=== PATIENT | female | born 1955 | race Caucasian/White ===

== ENCOUNTER → 2017-05-25 | Outpatient (CLI) | payer OTHER ==
[~2017-05-25] MED LIST: LISI-729 PO; MELO15TA4 PO; PANT40TA PO; XLTOPS OPR
[2017-05-25 12:24] LABS: BASO % 0.4 %; BASO ABS # 0.03 K/uL (0-0.2); COMPLETE YES; EOS % 2.3 %; HEMATOCRIT 40.6 % (37-47); IG% 0.3 %; LYMPH % 31.7 %; LYMPH ABS # 2.43 K/uL (1.2-3.4); MEAN CELL VOLUME 89.6 fL (80-100); MEAN CORPUSCULAR HEMOGLOBIN 29.6 pg (25-34); MEAN PLATELET VOLUME 11.9 fL (7.4-10.4); MONO % 9.3 %; PLATELET COUNT 176 K/uL (130-400); RED BLOOD COUNT 4.53 M/uL (4.2-5.4); WHITE BLOOD COUNT 7.67 K/uL (4.8-10.8)
[2017-05-25 12:40] LABS: BLOOD UREA NITROGEN 19 mg/dl (7-18); BUN/CREATININE RATIO 22.8 (10-20); CALCIUM 9.1 mg/dl (8.5-10.1); CARBON DIOXIDE 27 mmol/L (21-32); CHLORIDE 105 mmol/L (98-107); CREATININE 0.81 mg/dl (0.60-1.20); GLUCOSE 117 mg/dl (70-99); POTASSIUM 3.9 mmol/L (3.5-5.1); SODIUM 139 mmol/L (136-145)
== END | disposition home or self-care (01) ==
LOC: C.CPL 10:39
PROVIDERS: ATTEND Orthopaedic Surgery
DX: G56.01 Carpal tunnel syndrome, right upper limb (principal)

== ENCOUNTER → 2017-06-03 | Day surgery (SDC) | payer OTHER ==
[2017-05-27 14:47] VITALS: Ht 162.6 cm; Wt 93.6 kg
[~2017-06-03] VITALS: Ht 162.6 cm; Wt 93.6 kg
[~2017-06-03] MED LIST changes: +ATROPINE SULFATE 0.1 MG/ML 5ML SYR IV PRN; +CEFAZOLIN 2000MG IV PUSH 10 ML IV SCH; +EpHEDrine SULFATE INJ 50 MG/ML AMP IV PRN; +FENTANYL CITRATE INJ 50 MCG/1 ML 2 ML VIAL IV PRN; +HYDR-5688 PO; +HYDROCODONE/ACETAMOPHEN 5/325MG TAB PO PRN; +LACTATED RINGER'S 1000ML 1,000 ML IV SCH; +LACTATED RINGER'S 1000ML 500 ML IV SCH; +LIDOCAINE HCL 2% LOCAL 20 ML VIAL ONE; -MELO15TA4 PO; +ONDANSETRON INJ 2 MG/ML 2 ML VIAL IV PRN; +PROPOFOL IV EMULSION 10 MG/ML 20 ML VIAL IV ONE; +SODIUM CHLORIDE 0.9% 1000ML 1,000 ML IV SCH
--- NOTE | 2017-06-03 10:20 | History & Physical Bridge Note ---
H&P Re-Evaluation Bridge Note: I have examined the patient, reviewed the History & Physical and in the interval since the performance of the History & Physical I have noted the following changes of clinical significance: No changes noted
--- NOTE | 2017-06-03 15:09 | Discharge Instructions-SurgCtr ---
Discharge Instructions Date of Service Jun 03, 2017. Visit Reason for Visit: Left Carpal Tunnel Syndrome Discharge Discharge Diagnosis / Problem: SAME ABOVE Discharge Goals Goal(s): Decrease discomfort, Improve function Activity Recommendations Activity Limitations: as noted below Lifting Limitations: until after follow-up appointment Exercise/Sports Limitations: until after follow-up appointment Anesthesia . Post Anesthesia Instructions: If you have had General Anesthesia or IV Sedation: * Do not drive today. * Resume driving when surgeon permits. * Do not make important decisions or sign legal documents today. * Call surgeon for: 1. Temperature elevations greater than 101 degrees F. 2. Uncontrollable pain. 3. Excessive bleeding. 4. Persistent nausea and vomiting. 5. Medication intolerance (nausea, vomiting or rash). * For nausea and vomiting use only clear liquids such as: tea, soda, bouillon until nausea subsides, then gradually increase diet as tolerated. * If you have any concerns or questions, call your surgeon's office. If physician is unavailable and it is an emergency, call 911 or go to the nearest emergency room. . Instructions / Follow-Up Instructions / Follow-Up MEDICATIONS: * Resume previous medications unless instructed otherwise by your surgeon. * Always take pain medication on a full stomach or with food to avoid upset stomach. * Do not drink alcohol or drive while taking narcotics. * Ibuprofen or Tylenol may be taken if narcotic not needed. SPECIAL CARE INSTRUCTIONS: __ None _X_ Keep extremity elevated and iced x 48 hours; apply ice 20-30 minutes 8-10 times/day. May remove at night. __ Sling __24 hrs/day __ Remove at night __ Shoulder Immobilizer __ 24 hrs/day __ Remove at night _X_ Dressing __ Maintain until seen in office, may shower with plastic over site _X_ Remove dressings in 5 DAYS. MAY SHOWER SOONER IF COVERED WITH PLASTIC BAG _X_ Cover incisions with band-aids after showering __ Do not remove steri-strips Call physician if chills or temperature rises above 102 degrees or pain unrelieved by prescribed pain medications at . . Diet Recommendations Home Diet: no limitations Fluid Restriction: None Pending Studies Studies pending at discharge: no Work Instructions Return To Work: after follow-up Lifting Limitations: no more than 10 pounds Medical Emergencies . Who to Call and When: Medical Emergencies: If at any time you feel your situation is an emergency, please call 911 immediately. . Non-Emergent Contact Non-Emergency issues call your: Primary Care Provider Call Non-Emergent contact if: you have a fever, temperature is above 101.5 . . "Provider Documentation" section prepared by Vinay Deras. .
[2017-06-03 15:16] VITALS: TEMP 36.8
--- NOTE | 2017-06-03 15:16 | [facility] Post Operative Brief Note ---
Immediate Operative Summary Operative Date Jun 03, 2017. Pre-Operative Diagnosis Left Carpal Tunnel Syndrome Post-Operative Diagnosis Same Procedure(s) Performed Left Carpal Tunnel Release Surgeon Dr. Alonso Environmental Studies Department Chair Surgeon(s) None Estimated Blood Loss 5ml Findings as above Specimens None Complication(s) None Disposition Recovery Room / PACU
--- NOTE | 2017-06-03 15:26 | Anesthesia Progress Nt - [facility] ---
Anesthesia Post Op Note Date & Time Jun 03, 2017 at 15:26 Vital Signs Pain Intensity: 0 Vital Signs Past 12 Hours Date Time Temp Pulse Resp B/P (MAP) Pulse Ox O2 Delivery O2 Flow Rate FiO2 06/03/17 12:24 36.9 88 16 130/92 (105) 95 Room Air Notes Mental Status: alert / awake / arousable, participated in evaluation Pt Amnestic to Procedure: Yes Nausea / Vomiting: adequately controlled Pain: adequately controlled Airway Patency, RR, SpO2: stable & adequate BP & HR: stable & adequate Hydration State: stable & adequate Anesthetic Complications: no major complications apparent
[2017-06-03 15:45] VITALS: BP 139/85; PULSE 71; O2SAT 95
--- NOTE | 2017-06-03 17:54 | OPERATIVE REPORT ---
DATE OF OPERATION: 06/03/2017 PREOPERATIVE DIAGNOSIS: Carpal tunnel syndrome of the left wrist. POSTOPERATIVE DIAGNOSIS: Same. PROCEDURE: Open left carpal tunnel release. SURGEON: Dr. Iban Alonso. INTERACTIVE MARKETING STRATEGIST: None. ANESTHESIA: Local with sedation. COMPLICATION: None. CONDITION: Stable to PACU. INDICATIONS: Meredith is a pleasant 62-year-old female who presented to my office with complaints of numbness in her left hand. EMG and clinical examination were diagnostic for carpal tunnel syndrome of the left wrist. After failing conservative treatment, she elected to undergo an open left carpal tunnel release. On 06/03/2017, she arrived at [facility] for the above procedure. She was seen in the preoperative holding area and the operative extremity was identified and signed. She was given a preoperative antibiotic and taken back to the operating room, laid on table in supine position and put under basic sedation. The left wrist was then prepped and draped in sterile fashion, timeout was done, and the patient and operative extremity was properly identified. The surgical site was anesthetized with 10 mL of lidocaine. A longitudinal incision was made directly over the transverse carpal ligament. Dissection was taken down through the fascia. The transverse carpal ligament was then released with a knife and tenotomy scissors. Care was taken to ensure complete proximal and distal release. Care was also taken not to disrupt the motor branch or the palmar cutaneous branch. The wound was then irrigated and closed with 4-0 nylon suture. She was placed in a soft dressing and taken to the postanesthesia care unit in stable condition. She tolerated the procedure well. I attest to the content of the Intraoperative Record and any orders documented therein. Any exception s are noted below.
== END | disposition home or self-care (01) ==
LOC: X.SURG 12:10
PROVIDERS: ATTEND Orthopaedic Surgery
DX: G56.02 Carpal tunnel syndrome, left upper limb (principal); I10 Essential (primary) hypertension; K21.9 Gastro-esophageal reflux disease without esophagitis; E66.9 Obesity, unspecified; Z79.899 Other long term (current) drug therapy

== ENCOUNTER → 2017-06-21 | Outpatient (CLI) | payer OTHER ==
[~2017-06-21] MED LIST changes: -ATROPINE SULFATE 0.1 MG/ML 5ML SYR IV PRN; -CEFAZOLIN 2000MG IV PUSH 10 ML IV SCH; -EpHEDrine SULFATE INJ 50 MG/ML AMP IV PRN; -FENTANYL CITRATE INJ 50 MCG/1 ML 2 ML VIAL IV PRN; -HYDROCODONE/ACETAMOPHEN 5/325MG TAB PO PRN; -LACTATED RINGER'S 1000ML 1,000 ML IV SCH; -LACTATED RINGER'S 1000ML 500 ML IV SCH; -LIDOCAINE HCL 2% LOCAL 20 ML VIAL ONE; -ONDANSETRON INJ 2 MG/ML 2 ML VIAL IV PRN; -PROPOFOL IV EMULSION 10 MG/ML 20 ML VIAL IV ONE; -SODIUM CHLORIDE 0.9% 1000ML 1,000 ML IV SCH
[2017-06-21 18:06] LABS: BASO % 0.6 %; BASO ABS # 0.04 K/uL (0-0.2); EOS % 2.5 %; EOS ABS # 0.17 K/uL (0-0.5); HEMATOCRIT 42.4 % (37-47); HEMOGLOBIN 14.3 g/dL (12.0-16.0); IG# 0.01 K/uL (0.00-0.02); LYMPH % 31.8 %; LYMPH ABS # 2.17 K/uL (1.2-3.4); MEAN CELL VOLUME 89.1 fL (80-100); MEAN CORPUSCULAR HGB CONC 33.7 g/dl (32-36); MEAN PLATELET VOLUME 11.2 fL (7.4-10.4); MONO % 8.6 %; MONO ABS # 0.59 K/uL (0.11-0.59); NEUT % 56.4 %; NEUT ABS # 3.85 K/uL (1.4-6.5); PLATELET COUNT 177 K/uL (130-400); RED CELL DISTRIBUTION WIDTH CV 12.8 % (11.5-14.5); RED CELL DISTRIBUTION WIDTH SD 41.3 fL (36.4-46.3); WHITE BLOOD COUNT 6.83 K/uL (4.8-10.8)
[2017-06-21 18:27] LABS: BLOOD UREA NITROGEN 18 mg/dl (7-18); CALCIUM 8.9 mg/dl (8.5-10.1); CARBON DIOXIDE 27 mmol/L (21-32); CREATININE 0.88 mg/dl (0.60-1.20); GLUCOSE 108 mg/dl (70-99); POTASSIUM 4.3 mmol/L (3.5-5.1); SODIUM 139 mmol/L (136-145)
== END | disposition home or self-care (01) ==
LOC: C.LAB 17:05
PROVIDERS: ATTEND Orthopaedic Surgery
DX: G56.01 Carpal tunnel syndrome, right upper limb (principal)

== ENCOUNTER → 2017-07-08 | Day surgery (SDC) | payer OTHER ==
[2017-07-06 14:31] VITALS: Ht 162.6 cm; Wt 93.6 kg
[~2017-07-08] VITALS: Ht 162.6 cm; Wt 93.6 kg
[~2017-07-08] MED LIST changes: +ATROPINE SULFATE 0.1 MG/ML 5ML SYR IV PRN; +CEFAZOLIN 2000MG IV PUSH 10 ML IV SCH; +EpHEDrine SULFATE INJ 50 MG/ML AMP IV PRN; +FENTANYL CITRATE INJ 50 MCG/1 ML 2 ML VIAL ONE; +HYDROCODONE/ACETAMOPHEN 5/325MG TAB PO PRN; +LACTATED RINGER'S 1000ML 1,000 ML IV SCH; +LIDOCAINE HCL 1% 20 ML VIAL ONE; +LIDOCAINE HCL 2% 2 ML VIAL (20MG/ML) ONE; +LIDOCAINE HCL 2% LOCAL 20 ML VIAL ONE; +MIDAZOLAM HCL 1 MG/ML 2ML VIAL ONE; +ONDANSETRON INJ 2 MG/ML 2 ML VIAL IV PRN; -PANT40TA PO; +PROPOFOL IV EMULSION 10 MG/ML 20 ML VIAL IV ONE; +SODIUM CHLORIDE 0.9% 1000ML 1,000 ML IV SCH
--- NOTE | 2017-07-08 07:23 | [facility] Post Operative Brief Note ---
Immediate Operative Summary Operative Date Jul 08, 2017. Pre-Operative Diagnosis Right Carpal Tunnel Syndrome Post-Operative Diagnosis Same Procedure(s) Performed Right Carpal Tunnel Release Surgeon Dr. Alonso Scheduling Agent Surgeon(s) Emeli Deras PA-C Estimated Blood Loss None Findings as above Specimens None Complication(s) None Disposition Recovery Room / PACU
[2017-07-08 07:29] VITALS: TEMP 36.5
--- NOTE | 2017-07-08 07:31 | Discharge Instructions-SurgCtr ---
Discharge Instructions Date of Service Jul 08, 2017. Visit Reason for Visit: Right Carpal Tunnel Syndrome Discharge Discharge Diagnosis / Problem: SAME ABOVE Discharge Goals Goal(s): Decrease discomfort, Improve function Medications Stopped Medications Name(s): no blood thinners Restart Stopped Medication(s): MAY RESTART 07/08/2017 Activity Recommendations Activity Limitations: as noted below Lifting Limitations: until after follow-up appointment Exercise/Sports Limitations: until after follow-up appointment Driving or Machine Use: resume 1 day after discharge Anesthesia . Post Anesthesia Instructions: If you have had General Anesthesia or IV Sedation: * Do not drive today. * Resume driving when surgeon permits. * Do not make important decisions or sign legal documents today. * Call surgeon for: 1. Temperature elevations greater than 101 degrees F. 2. Uncontrollable pain. 3. Excessive bleeding. 4. Persistent nausea and vomiting. 5. Medication intolerance (nausea, vomiting or rash). * For nausea and vomiting use only clear liquids such as: tea, soda, bouillon until nausea subsides, then gradually increase diet as tolerated. * If you have any concerns or questions, call your surgeon's office. If physician is unavailable and it is an emergency, call 911 or go to the nearest emergency room. . Instructions / Follow-Up Instructions / Follow-Up MEDICATIONS: * Resume previous medications unless instructed otherwise by your surgeon. * Always take pain medication on a full stomach or with food to avoid upset stomach. * Do not drink alcohol or drive while taking narcotics. * Ibuprofen or Tylenol may be taken if narcotic not needed. SPECIAL CARE INSTRUCTIONS: __ None _X_ Keep extremity elevated and iced x 48 hours; apply ice 20-30 minutes 8-10 times/day. May remove at night. __ Sling __24 hrs/day __ Remove at night __ Shoulder Immobilizer __ 24 hrs/day __ Remove at night _X_ Dressing __ Maintain until seen in office, may shower with plastic over site _X_ Remove dressings in 5 DAYS. MAY SHOWER SOONER IF COVERED WITH PLASTIC BAG _X_ Cover incisions with band-aids after showering __ Do not remove steri-strips Call physician if chills or temperature rises above 102 degrees or pain unrelieved by prescribed pain medications at . . Diet Recommendations Home Diet: no limitations Fluid Restriction: None Procedures Procedures Performed: Right Carpal Tunnel Release Pending Studies Studies pending at discharge: no Work Instructions Return To Work: after follow-up Lifting Limitations: no more than 10 pounds Medical Emergencies . Who to Call and When: Medical Emergencies: If at any time you feel your situation is an emergency, please call 911 immediately. . Non-Emergent Contact Non-Emergency issues call your: Primary Care Provider Call Non-Emergent contact if: you have a fever, temperature is above 101.5 . . "Provider Documentation" section prepared by Vinay Deras. .
--- NOTE | 2017-07-08 07:34 | OPERATIVE REPORT ---
DATE OF OPERATION: 07/08/2017 PREOPERATIVE DIAGNOSIS: Carpal tunnel syndrome of the right wrist. POSTOPERATIVE DIAGNOSIS: Same. PROCEDURE: Open right carpal tunnel release. SURGEON: Iban Alonso DO. DISPATCH CLERK: Milton Deras PA-C, whose assistance was necessary for positioning of the hand helping with retraction and closure. ANESTHESIA: Local with sedation. COMPLICATIONS: None. CONDITION: Stable to PACU. INDICATIONS: Meredith is a pleasant 62-year-old female who presented to my office with complaints of numbness in her right hand. EMG and clinical examination were diagnostic for carpal tunnel syndrome of the right wrist. After failing conservative treatment, she elected to undergo an open carpal tunnel release. DESCRIPTION OF THE PROCEDURE: On 07/08/2017, she arrived at [facility] for the above procedure. She was seen in the preoperative holding area and the operative extremity was identified and signed. She was given preoperative antibiotic and taken back to the operating room, laid on the table in supine position and given basic sedation. The right hand was then prepped and draped in sterile fashion. Time-out was done and the patient and operative extremity was properly identified. The surgical site was anesthetized with 8 mL of 1% lidocaine. A longitudinal incision was made directly over the transverse carpal ligament. Dissection was taken down through the palmar fascia. The transverse carpal ligament was then released with a sharp knife and tenotomy scissors. Care was taken not to disrupt the palmar cutaneous branch or the motor branch of the median nerve. The wound was then irrigated and closed with 4-0 nylon suture. She was placed in a soft dressing and taken to the postanesthesia care unit in stable condition. She tolerated the procedure well. I attest to the content of the Intraoperative Record and any orders documented therein. Any exception s are noted below.
[2017-07-08 07:51] VITALS: BP 138/85; PULSE 75; O2SAT 97
--- NOTE | 2017-07-08 07:56 | Anesthesia Progress Nt - [facility] ---
Anesthesia Post Op Note Date & Time Jul 08, 2017 at 07:56 Vital Signs Pain Intensity: 0 Vital Signs Past 12 Hours Date Time Temp Pulse Resp B/P (MAP) Pulse Ox O2 Delivery O2 Flow Rate FiO2 07/08/17 07:51 75 16 138/85 (102) 97 Room Air 07/08/17 07:29 36.5 77 16 111/74 (86) 93 Room Air 07/08/17 06:24 36.9 84 16 144/93 (110) 95 Room Air Notes Mental Status: alert / awake / arousable, participated in evaluation Pt Amnestic to Procedure: Yes Nausea / Vomiting: adequately controlled Pain: adequately controlled Airway Patency, RR, SpO2: stable & adequate BP & HR: stable & adequate Hydration State: stable & adequate Anesthetic Complications: no major complications apparent
== END | disposition home or self-care (01) ==
LOC: X.SURG 06:04
PROVIDERS: ATTEND Orthopaedic Surgery
DX: G56.01 Carpal tunnel syndrome, right upper limb (principal); I10 Essential (primary) hypertension; K21.9 Gastro-esophageal reflux disease without esophagitis; E66.9 Obesity, unspecified; Z79.899 Other long term (current) drug therapy

== ENCOUNTER 2022-10-28 05:58 | Observation (INO) ==
--- NOTE | 2022-09-15 09:39 | PAT Medication Instructions ---
Medication Instructions Date of Service September 15, 2022 Home Medications Medication Instructions Recorded Auto Titrating CPAP #1 ea 02/05/22 pantoprazole 40 mg tablet,delayed 40 mg PO BID #60 tabs 07/29/22 release atorvastatin 20 mg tablet 20 mg PO 1400 #90 tabs 08/17/22 oxybutynin chloride 15 mg 15 mg PO 1400 #90 tabs 08/17/22 tablet,extended release 24 hr diazepam 5 mg tablet 5 mg PO ONCE PRN anxiety #2 tabs 08/24/22 gabapentin 300 mg capsule 300 mg PO TID #90 caps 09/01/22 diclofenac sodium 75 mg 75 mg PO BID PRN pain #30 tabs 09/11/22 tablet,delayed release tizanidine 4 mg tablet 4 mg PO BID PRN muscle spasticity 09/11/22 #30 tabs B-complex with vitamin C 1 tab PO 1400 calcium carbonate 300 mg (750 mg) chewable tablet (Tums) 300 mg PO BID cholecalciferol (vitamin D3) 125 mcg (5,000 unit) capsule 125 mcg PO 1400 magnesium 250 mg tablet 250 mg PO 1400 docusate sodium 250 mg capsule (Stool Softener) 250 mg PO BID fluticasone propionate 50 mcg/actuation nasal spray,suspension (Flonase Allergy Relief) 1 spray intranasal HS latanoprost (PF) 0.005 % eye drops 1 drp ophthalmic (eye) DAILY lisinopril 20 mg tablet 20 mg PO 1400 metformin 500 mg tablet,extended release 24 hr 1,000 mg PO 1400 pantoprazole 40 mg tablet,delayed release 40 mg PO BID atorvastatin 20 mg tablet 20 mg PO 1400 oxybutynin chloride 15 mg tablet,extended release 24 hr 15 mg PO 1400 diazepam 5 mg tablet 5 mg PO ONCE PRN anxiety gabapentin 300 mg capsule 300 mg PO TID diclofenac sodium 75 mg tablet,delayed release 75 mg PO BID PRN pain tizanidine 4 mg tablet 4 mg PO BID PRN muscle spasticity Continue as directed B-complex with vitamin C 1 tab PO 1400 (just do not take day of surgery) cholecalciferol (vitamin D3) 125 mcg (5,000 unit) capsule 125 mcg PO 1400 (just do not take day of surgery) latanoprost (PF) 0.005 % eye drops 1 drp ophthalmic (eye) DAILY lisinopril 20 mg tablet 20 mg PO 1400 (just do not take day of surgery) metformin 500 mg tablet,extended release 24 hr 1,000 mg PO 1400 (just do not take day of surgery) atorvastatin 20 mg tablet 20 mg PO 1400 oxybutynin chloride 15 mg tablet,extended release 24 hr 15 mg PO 1400 (just do not take day of surgery) diazepam 5 mg tablet 5 mg PO ONCE PRN anxiety (if needed) ASK your surgeon for instructions diclofenac sodium 75 mg tablet,delayed release 75 mg PO BID PRN pain DO NOT take the morning of surgery calcium carbonate 300 mg (750 mg) chewable tablet (Tums) 300 mg PO BID magnesium 250 mg tablet 250 mg PO 1400 calcium carbonate 300 mg (750 mg) chewable tablet (Tums) 300 mg PO BID docusate sodium 250 mg capsule (Stool Softener) 250 mg PO BID tizanidine 4 mg tablet 4 mg PO BID PRN muscle spasticity Take morning of surgery With a small sip of water, OTHERWISE NOTHING TO EAT OR DRINK AFTER MIDNIGHT: pantoprazole 40 mg tablet,delayed release 40 mg PO BID gabapentin 300 mg capsule 300 mg PO TID Take evening before surgery calcium carbonate 300 mg (750 mg) chewable tablet (Tums) 300 mg PO BID magnesium 250 mg tablet 250 mg PO 1400 calcium carbonate 300 mg (750 mg) chewable tablet (Tums) 300 mg PO BID docusate sodium 250 mg capsule (Stool Softener) 250 mg PO BID fluticasone propionate 50 mcg/actuation nasal spray,suspension (Flonase Allergy Relief) 1 spray intranasal HS pantoprazole 40 mg tablet,delayed release 40 mg PO BID gabapentin 300 mg capsule 300 mg PO TID tizanidine 4 mg tablet 4 mg PO BID PRN muscle spasticity (if needed) Other Notes If you have any questions please call us at [phone] or [phone] or [phone] or [phone]
--- NOTE | 2022-10-26 15:37 | Anesthesiology Consultation ---
Date of Service October 26, 2022 Assessment & Plan (1) Encounter for pre-operative examination: - Check BSG AM DOS - COVID screening: Per assessment on 10/26: No known COVID-19 positive contacts or current COVID-19 related symptoms. Travel screen negative. Patient vaccinated. At surgeon discretion if preop Covid testing being done. Chart Review Chart Review: Acceptable Risk for Surgery History Surgery Operation Date: 09/30/22 07:30 Proposed Procedures p L2-L3 Laminectomy, L4-L5 Laminectomy - Romaine Herbert MD Operation Date: 10/28/22 07:30 Proposed Procedures p L2-L3 Laminectomy, L4-L5 Laminectomy - Romaine Herbert MD Height/Weight Height: 5 ft 4 in Weight: 104.8 kg Allergies Allergy/AdvReac Type Severity Reaction Status Date / Time codeine Allergy Mild HIVES Verified 09/14/22 13:45 Medications Home Medications Medication Instructions Recorded Confirmed Last Taken B-complex with vitamin C 1 tab PO 1400 04/07/21 09/14/22 07/05/22 calcium carbonate 300 mg (750 mg) 300 mg PO BID 04/07/21 09/14/22 07/05/22 chewable tablet (Tums) cholecalciferol (vitamin D3) 125 125 mcg PO 1400 04/07/21 09/14/22 07/05/22 mcg (5,000 unit) capsule magnesium 250 mg tablet 250 mg PO 1400 04/07/21 09/14/22 07/05/22 docusate sodium 250 mg capsule 250 mg PO BID 06/30/22 09/14/22 07/05/22 (Stool Softener) fluticasone propionate 50 1 spray intranasal HS 06/30/22 09/14/22 07/05/22 mcg/actuation nasal spray,suspension (Flonase Allergy Relief) latanoprost (PF) 0.005 % eye drops 1 drp ophthalmic (eye) DAILY 06/30/22 09/14/22 07/05/22 pantoprazole 40 mg tablet,delayed 40 mg PO BID #60 tabs 07/29/22 09/14/22 Unknown release atorvastatin 20 mg tablet 20 mg PO 1400 #90 tabs 08/17/22 09/14/22 Unknown oxybutynin chloride 15 mg 15 mg PO 1400 #90 tabs 08/17/22 09/14/22 Unknown tablet,extended release 24 hr diazepam 5 mg tablet 5 mg PO ONCE PRN anxiety #2 tabs 08/24/22 09/14/22 Unknown gabapentin 300 mg capsule 300 mg PO TID #90 caps 09/01/22 09/14/22 Unknown diclofenac sodium 75 mg 75 mg PO BID PRN pain #30 tabs 09/11/22 09/14/22 Unknown tablet,delayed release metformin 500 mg tablet,extended 1,000 mg PO 1400 #180 tabs 09/17/22 Unknown release 24 hr lisinopril 20 mg tablet 20 mg PO 1400 #90 tabs 10/02/22 Unknown Auto Titrating CPAP #1 ea 10/09/22 Unknown tizanidine 4 mg capsule 4 mg PO BID PRN muscle spasticity 10/20/22 Unknown #30 caps tramadol 50 mg tablet 50 mg PO BID PRN severe pain 10/20/22 Unknown (scale score 7-10) #30 tabs Past Medical History Medical History Arthritis Chronic back pain Chronic neck pain Diabetes type 2, controlled NIDDM GERD (gastroesophageal reflux disease) History of COVID-19 06/2022 (home test)- weakness, fatigue, given Paxlovid Hx of endometriosis Hyperlipidemia Hypertension Lumbar radiculopathy, right Lumbar spinal stenosis Macular degeneration Mixed stress and urge urinary incontinence Peripheral neuropathy Sacroiliitis Severe obstructive sleep apnea CPAP (device taken back, needs to be retested) Exercise / Class Metabolic Activity III < 4 Walking/Shop/Light housework Past Family History Family History Father Prostate cancer Myocardial infarction Lung cancer Mother Congestive heart failure Hypertension Other No family history of adverse response to anesthesia Denies family history of Ovarian cancer Breast cancer Colorectal cancer Past Surgical History Surgical History H/O knee surgery partial Right knee replacement H/O neck surgery C4-[address] Aguilar - Full ROM per patient History of bilateral tubal ligation History of carpal tunnel release bilateral History of section x2 History of colonoscopy History of detached retina repair right History of esophagogastroduodenoscopy (EGD) Colonoscopy/EGD (07/07/22): MAC at [facility] History of tonsillectomy S/P debridement () stomach area S/P epidural steroid injection cervical S/P gastroplasty Vertical Banded Gastroplasty S/P laparotomy () multiple for endometriosis + mesh placement + surgical site infection s/p mesh placement Past Anesthesia History No Hx of Anesthesia Complications and No Family Hx of Anesthesia Complications History of PONV No Hx of PONV and No Hx of Motion Sickness Social History Smoking Status: Former smoker Do You Dip or Chew Tobacco: No Smoking End Date: Quit age 30s Hx Alcohol Use: No Hx Substance Use: No substance use type: does not use Review of Systems Patient denies chest pain, shortness of breath, fever, chills, cough, wheezing, palpitations. Physical Exam Vital Signs VITALS BP 116/71 P 93 TEMP 98.4 SP02 96%RA RESP 18 PHYSICAL Mildly decreased cervical extension range of motion. Full TMJ range of motion. TMD 3.5 finger breaths Mallampati Score 3 Dentition: upper full denture, edentulous Lungs: clear throughout to auscultation Cardiac: regular rate and rhythm, no murmurs noted Spine: normal Carotid arteries: negative bruit Extremities: no LE edema Lab Results Anesthesia Preop Results Results Anesthesia Widget: WBC 9.63 K/ul (4.8-10.8) 10/26/22 Hgb 13.6 g/dl (12.0-16.0) 10/26/22 Hct 41.9 % (37.0-47.0) 10/26/22 Plt 191 K/uL (130-400) 10/26/22 Na 141 mmol/L (136-145) 10/26/22 K 4.5 mmol/L (3.5-5.1) 10/26/22 Cl 107 mmol/L (98-107) 10/26/22 CO2 29 mmol/L (21-32) 10/26/22 BUN 29 mg/dl (6-23) H 10/26/22 Creat 0.95 mg/dl (0.6-1.2) 10/26/22 Glucose Level 114 mg/dl (70-99(Fasting)) H 10/26/22 PT 9.8 Seconds (9.0-12.0) 10/26/22 PTT 24.3 Seconds (21.0-31.0) 10/26/22 INR 0.9 (0.9-1.1) 10/26/22 HA1c 6.3 % (4.5-5.6) H 10/26/22 Blood Type A Positive 10/26/22 Antibody Screen NEGATIVE 10/26/22 Testing Electrocardiogram Date: 10/26/22 NSR at 94bpm. unconfirmed report. Chest X-Ray Date: 10/26/22 FINDINGS: Cardiomediastinal and hilar silhouettes are within normal limits. No pneumothorax, pleural effusion, airspace consolidation or pulmonary edema. Degenerative changes of the shoulders and spine. Cervical spinal fusion hardware. Surgical clips project over the upper abdomen. IMPRESSION: No acute process. COVID-19 Risk Screen Screening Information COVID-19 Screen Date: 10/26/22 Exposure 21 Days Family/Household +COVID Last 21 Days: No Exposure 10 Days Any COVID Exposure Last 10 Days: No Symptoms Last 10 Days Experienced COVID Sx Last 10 Days: No + COVID 0-90 Days COVID + in Last 0-90 Days: No
[2022-10-28] MEDS ORDERED: LR 60ML/HR IV SCH (06:00)
[2022-10-28] MEDS ORDERED: ceFAZolin 2000MG 2,000 MG/15 ML SYR IV SCH ×2 (06:00)
[2022-10-28] MEDS ORDERED: LR 15ML/HR IV SCH (06:00)
[2022-10-28] MEDS ORDERED: ONDANSETRON INJ 2 MG/ML 2 ML VIAL IV PRN ×2 (07:00→13:58)
[2022-10-28] MEDS ORDERED: ePHEDrine sulfate 50 MG/ML AMP IV PRN (07:00)
[2022-10-28] MEDS ORDERED: ATROPINE SULFATE 0.1 MG/ML 10ML SYR IV PRN (07:00)
--- NOTE | 2022-10-28 07:00 | History & Physical Bridge Note ---
Date of Service October 28, 2022 History & Physical Bridge Note I have examined the patient, reviewed the History & Physical and in the interval since the performance of the History & Physical I have noted the following changes of clinical significance: no changes noted
[2022-10-28] MEDS ORDERED: GELATIN SPONGE 12-7MM ONE (07:01)
[2022-10-28] MEDS ORDERED: THROMBIN 5000 UNITS KIT ONE (07:01)
[2022-10-28] MEDS ORDERED: VANCOMYCIN HCL 1000MG/20ML VIAL ONE (07:02)
[2022-10-28] MEDS ORDERED: MIDAZOLAM HCL 1 MG/ML 2ML VIAL ONE (07:02)
[2022-10-28] MEDS ORDERED: fentaNYL citrate PF 100 MCG/2 ML VIAL ONE ×3 (07:02→12:07)
[2022-10-28] MEDS ORDERED: ONDANSETRON INJ 2 MG/ML 2 ML VIAL ONE (07:03)
[2022-10-28] MEDS ORDERED: DEXAMETHASONE SOD INJ 4 MG/ML VIAL ONE (07:03)
[2022-10-28] MEDS ORDERED: PROPOFOL IV EMULSION 10 MG/ML 20 ML VIAL IV ONE (07:03)
[2022-10-28] MEDS ORDERED: GLYCOPYRROLATE 0.2 MG/ML VIAL ONE (07:03)
[2022-10-28] MEDS ORDERED: LIDOCAINE 2% 2 ML VIAL/AMP(20MG/ML) INFIL ONE (07:03)
[2022-10-28] MEDS ORDERED: ROCURONIUM BROMIDE 10 MG/ML 5 ML VIAL IV ONE ×2 (07:03→10:39)
[2022-10-28] MEDS ORDERED: diphenhydrAMINE 50 MG/ML VIAL ONE (07:14)
[2022-10-28] MEDS ORDERED: BUPIVACAINE/EPINEPHRINE 0.5% MPF 1:200,000 30 ML VIAL ONE (08:49)
[2022-10-28] MEDS ORDERED: SUGAMMADEX SODIUM 200 MG/2 ML VIAL IV ONE (10:12)
[2022-10-28] MEDS ORDERED: ALBUTEROL HFA 8 GM INHALER INH ONE (10:13)
[2022-10-28] MEDS ORDERED: PHENYLEPHRINE HCL 10 MG/ML VIAL ONE (10:53)
--- NOTE | 2022-10-28 12:29 | Post Operative Brief Note ---
[facility] Immediate Post Op with CF Date of Surgery October 28, 2022 Pre & Post Diagnosis Operation Date: 10/28/22 07:30 Pre-Op Diagnosis: Spinal Stenosis, Lumbar Region with Neurogenic Claudication Post-Op Diagnosis: Spinal Stenosis, Lumbar Region with Neurogenic Claudication I identified the patient and participated in the time-out.: Yes Procedure Operation Date: 10/28/22 07:30 Actual Procedures p L2-L3 Laminectomy, L4-L5 Laminectomy(Not Applicable) - Romaine Herbert MD Surgeon Romaine Herbert MD Roller Picker none Estimated Blood Loss 150 Findings Consistent with Post-Op Diagnosis Drains Pérez Catheter
[2022-10-28] MEDS: fentaNYL citrate PF 100 MCG/2 ML VIAL IV PRN ×2 (12:45→13:00)
--- NOTE | 2022-10-28 13:56 | Anesthesiology Progress Note ---
Date of Service October 28, 2022 Anesthesia Post Procedure Vital Signs Vital Signs: Temp Pulse Pulse Resp BP Pulse Ox O2 Del Method 10/28/22 12:55 96 H 12 108/65 94 Oxymask 10/28/22 12:45 98 H 18 126/75 98 Oxymask 10/28/22 13:30 36.4 C L 98 H 10 L 108/73 96 Nasal Cannula 10/28/22 13:25 36.4 C L 97 H 19 107/70 95 Nasal Cannula 10/28/22 13:15 36.4 C L 98 H 21 119/74 96 Nasal Cannula 10/28/22 13:05 36.4 C L 97 H 12 103/66 95 Oxymask 10/28/22 12:35 99 H 18 134/89 100 Oxymask 10/28/22 12:28 36.3 C L 95 H 16 122/89 98 Oxymask 10/28/22 06:33 36.5 C 92 H 18 141/109 H 95 Room Air O2 Flow Rate 10/28/22 12:55 3 10/28/22 12:45 3 10/28/22 13:30 2 10/28/22 13:25 2 10/28/22 13:15 3 10/28/22 13:05 2 10/28/22 12:35 3 10/28/22 12:28 5 10/28/22 06:33 Transfer of Care Handoff Completed per policy Notes Mental Status: alert / awake / arousable and participated in evaluation Patient Amnestic to Procedure: Yes Nausea / Vomiting: adequately controlled Pain: adequately controlled Airway Patency, RR, SpO2: stable & adequate BP & HR: stable & adequate Hydration State: stable & adequate Anesthetic Complications: no major complications apparent and Pt Satisfied with anesthetic care
[2022-10-28] MEDS ORDERED: DO NOT ADMINISTER FLU VACCINE PRN (13:58)
[2022-10-28] MEDS ORDERED: SOD PHOSPHATE/SOD BIPHOSPHATE ENEMA 132 ML BTL PR PRN (13:58)
[2022-10-28] MEDS ORDERED: LORazepam 2 MG/1 ML VIAL IV PRN (13:58)
[2022-10-28] MEDS ORDERED: diphenhydrAMINE Capsule 25 MG CAP PO PRN (13:58)
[2022-10-28] MEDS ORDERED: ALUMINUM/MAGNESIUM SUSP 30 ML UDC PO PRN (13:58)
[2022-10-28] MEDS ORDERED: tiZANidine HCL 4 MG TABLET PO PRN (13:58)
[2022-10-28] MEDS ORDERED: FAMOTIDINE 20 MG TAB PO PRN (13:58)
[2022-10-28] MEDS ORDERED: ONDANSETRON 4 MG OD TAB PO PRN (13:58)
[2022-10-28] MEDS ORDERED: DO NOT ADMINISTER PNEUMOCOCCAL VACCINE PRN (13:58)
[2022-10-28] MEDS ORDERED: ACETAMINOPHEN 500 MG TAB PO PRN (13:58)
[2022-10-28] MEDS ORDERED: ACETAMINOPHEN 1,000 MG/100 ML VIAL IV PRN (13:58)
[2022-10-28] MEDS ORDERED: MAGNESIUM HYDROXIDE SUSP 30 ML UDC PO PRN (13:58)
[2022-10-28] MEDS ORDERED: bisacodyL 10 MG SUPP PR PRN (13:58)
[2022-10-28] MEDS ORDERED: PHARMACY GLYCEMIC MGMT CONSULT PRN (13:58)
[2022-10-28] MEDS ORDERED: METOCLOPRAMIDE HCL INJ 5 MG/ML 2 ML VIAL IV PRN (13:58)
[2022-10-28] MEDS ORDERED: traMADol HCL 50 MG TABLET PO PRN (13:58)
[2022-10-28] MEDS ORDERED: LORazepam 0.5 MG TAB PO PRN (13:58)
[2022-10-28] MEDS ORDERED: PROMETHAZINE HCL 12.5 MG in SODIUM CHLORIDE 0.9% 50 ML IV PRN (13:58)
[2022-10-28] MEDS ORDERED: NALOXONE HCL 0.4 MG/1 ML VIAL/CARP IV PRN (13:58)
[2022-10-28] MEDS ORDERED: hydrOXYzine HCl 25 MG TAB PO PRN (13:58)
[2022-10-28] MEDS ORDERED: lisinopril 20 MG TAB PO SCH (14:00)
[2022-10-28] MEDS ORDERED: metFORMIN HCL ER 500 MG TABCR PO SCH (14:00)
[2022-10-28] MEDS: HYDROmorphone INJ 0.5 MG/0.5 ML SYR IV PRN ×2 (14:12→18:16)
--- NOTE | 2022-10-28 14:20 | Anesthesiology Progress Note ---
Date of Service October 28, 2022 Anesthesia Post Procedure Vital Signs Vital Signs: Temp Pulse Pulse Pulse Resp BP Pulse Ox 10/28/22 14:00 36.6 C 97 H 14 134/85 100 10/28/22 12:55 96 H 12 108/65 94 10/28/22 12:45 98 H 18 126/75 98 10/28/22 13:30 36.4 C L 98 H 10 L 108/73 96 10/28/22 13:25 36.4 C L 97 H 19 107/70 95 10/28/22 13:15 36.4 C L 98 H 21 119/74 96 10/28/22 13:05 36.4 C L 97 H 12 103/66 95 10/28/22 12:35 99 H 18 134/89 100 10/28/22 12:28 36.3 C L 95 H 16 122/89 98 10/28/22 06:33 36.5 C 92 H 18 141/109 H 95 O2 Del Method O2 Flow Rate 10/28/22 14:00 Nasal Cannula 2 10/28/22 12:55 Oxymask 3 10/28/22 12:45 Oxymask 3 10/28/22 13:30 Nasal Cannula 2 10/28/22 13:25 Nasal Cannula 2 10/28/22 13:15 Nasal Cannula 3 10/28/22 13:05 Oxymask 2 10/28/22 12:35 Oxymask 3 10/28/22 12:28 Oxymask 5 10/28/22 06:33 Room Air Pain Intensity Back: Pain Intensity: 8 Transfer of Care Handoff Completed per policy Notes Mental Status: alert / awake / arousable Patient Amnestic to Procedure: Yes Nausea / Vomiting: adequately controlled Pain: adequately controlled Airway Patency, RR, SpO2: stable & adequate BP & HR: stable & adequate Hydration State: stable & adequate Anesthetic Complications: no major complications apparent
--- NOTE | 2022-10-28 14:20 | Fluoroscopy Report ---
INTRAOPERATIVE RADIOGRAPH CLINICAL HISTORY: Lumbar spinal surgery. Fluoro time: 39 seconds Ka,r: 35.65 mGy FINDINGS: A single spot fluoroscopic view of the lumbar spine is present. A surgical implement projec ts posteriorly at L4-L5. A second implement proximally projects is seen posterior to L3. IMPRESSION: Intraoperative image of the lumbar spine as above. Electronically signed by: Ramon Rodriguez M.D. 10/28/2022 2:19 PM
--- NOTE | 2022-10-28 14:23 | Pharmacy Report ---
Pharmacy Glycemic Short Note 2 - Date of Service October 28, 2022 - Glycemic Short BSG Results (Last 24 hours): 10/28/22 10/28/22 06:24 12:35 POC Glucose 111 H 230 H OUTPATIENT ANTIDIABETIC REGIMEN: * Metformin 1 g PO daily HbA1c: 6.3% (10/26/22) ASSESSMENT: * ODALIS is a 67 year old female POD #0 s/p spinal surgery * Received 4 mg IV dexamethasone in OR, no ongoing steroids ordered at this time * Preop BSG of 111 mg/dL, postop BSG of 230 mg/dL - likely steroid-induced * Despite good outpatient glycemic control with metformin, will use aggressive basal/bolus regimen initially in light of steroids * Can likely back off tomorrow if no steroids ordered ongoing PLAN FOR INPATIENT GLYCEMIC CONTROL: * Hold outpatient oral diabetes medications * Basal insulin * Lantus 25 units SQ x 1 postoperatively (~0.25 unit/kg) * Bolus insulin * NovoLog per scale ACHS or Q6hrs while NPO * Goal Range: Low 110 mg/dL - High 140 mg/dL * Correction Factor: 20 mg/dL/unit * Nutritional / Prandial insulin per carb ratio of 1 unit per 6 grams CHO consumed
[2022-10-28] MEDS ORDERED: GLUCOSE 10 TAB/TUBE PO PRN (14:30)
[2022-10-28] MEDS ORDERED: DEXTROSE 50% 50 ML SYRINGE IV PRN (14:30)
[2022-10-28] MEDS ORDERED: GLUCOSE 40% GEL 15 GM TUBE PO PRN (14:30)
[2022-10-28] MEDS ORDERED: GLUCAGON FOR INJ 1 MG VIAL IM PRN (14:30)
[2022-10-28] MEDS ORDERED: CARBOHYDRATES FOR HYPOGLYCEMIA PO PRN (14:30)
[2022-10-28] MEDS ORDERED: LANTUS PER UNIT CHARGE SC ONE (14:30)
[2022-10-28] MEDS: KETOROLAC 30 MG/ML VIAL IV SCH ×2 (14:50→20:12)
[2022-10-28] MEDS: INSULIN ASPART PER UNIT CHARGE SC SCH ×3 (14:53→21:04)
[2022-10-28] MEDS: GABAPENTIN 300 MG CAP PO SCH ×2 (15:04→20:11)
[2022-10-28] MEDS: OXYBUTYNIN CHLORIDE XL 5 MG TABCR PO SCH (15:05)
[2022-10-28] MEDS: oxyCODONE/ACETAMINOPHEN 5mg/325mg TAB PO PRN ×2 (15:08→21:01)
[2022-10-28] MEDS: PANTOprazole 40 MG TAB PO SCH (20:11)
[2022-10-28] MEDS ORDERED: DOCUSATE SODIUM/SENNA 50/8.6MG TAB PO SCH (21:00)
[2022-10-28] MEDS ORDERED: FLUTICASONE PROPIONATE NA SPR 16 GM BTL SCH (21:00)
[2022-10-29] MEDS ORDERED: INSULIN ASPART PER UNIT CHARGE SC ONE (02:00)
[2022-10-29] MEDS: KETOROLAC 30 MG/ML VIAL IV SCH ×2 (02:30→09:14)
[2022-10-29] MEDS: oxyCODONE/ACETAMINOPHEN 5mg/325mg TAB PO PRN ×3 (02:30→10:48)
[2022-10-29] MEDS: POLYETHYLENE (MIRALAX) 17 GM PACK PO SCH ×2 (05:41→12:31)
[2022-10-29] MEDS ORDERED: SODIUM CHLORIDE 0.9% 1000ML 500 ML IV ONE (08:19)
[2022-10-29] MEDS: INSULIN ASPART PER UNIT CHARGE SC SCH ×2 (08:19→12:23)
--- NOTE | 2022-10-29 08:35 | Hospitalist Consultation ---
Date of Consultation October 29, 2022 Assessment & Plan (1) Hypotension: Acute/stable - moderate risk - Patient with a h/o HTN, takes Lisinopril 20mg daily, this has been placed on hold - Suspect that this is residual post anesthesia effect, will bolus with NSS 500 cc x1 and run mIVF @ 100 ml/hr x 1L - OOB to chair and otherwise activity as outlined by per primary team - STAT labs have been ordered including CBC to exclude ABLA as cause of hypotension as well as a BMP (2) Status post laminectomy: Acute/stable - s/p lumbar laminectomy due to spinal stenosis - pain control/dvt ppx/activity/dressing changes as per primary team - Would recommend IS use q1h wa for atelectasis/pna prevention (3) Diabetes type 2, controlled: Chronic/stable - NIDDM - Controlled on Metformin as monotherapy which is currently held - BSG this AM 101 - Continue checking BSG ac and hs, weight based meal coverage, no basal - pharmacy glycemic management consult placed - Can resume Metformin upon dc (4) GERD (gastroesophageal reflux disease): Chronic/stable - Continue Protonix Plan Thank you for allowing us to participate in the care of your patient, will follow. Would hold off on discharge at this time, if BP stabilizes with fluid resuscitation and symptoms resolve, could consider discharge later today versus tomorrow. Above plan of care has been d/w Dr. Hernandez who will also see and evaluate this patient. Further orders will be implemented as warranted. Supervising Physician Co-Signing Physician Notes Patient was seen and examined independently I discussed the case with Dominique Wild PAC I reviewed pertinent past medical social family history and also the plan of care and agree with the plan of care. Patient has some dizziness and lightheadedness associate with lower blood pressure postoperatively. She typically takes lisinopril. She was given a liter of fluids and later in the afternoon her symptoms have resolved. Patient has caregivers at home and wants to go home. This was agreeable by me Exam is regular without murmurs clicks or gallops lungs are clear neurological exam she is awake alert appropriate upper extremity strength is intact she has some minor back pain with movement but she has good sensation distally with strength distally Sepsis likely postoperative hypovolemia from blood loss n.p.o. status and volume loss during surgery. Patient was hydrated with a liter of fluid we will go home instructed to drink plenty of liquids follow-up with her family physician and Dr. Herbert Any exceptions will be noted below History of Present Illness Reason for Consultation: low BP Requesting Physician: Dr. Herbert Attending Physician: Romaine Herbert MD History of Present Illness Meredith Campuzano is a 67 yo F with a pmhx of HTN, DMT2, and spinal stenosis who underwent L2-[address] Herbert on 10/28. Patient received general anesthesia. No previous issues with anesthesia. She tolerated the procedure well without any immediate complications. Patient was noted to have a marginal BP of 96/61 around 2300 on 10/28. During the overnight hours she remained stable in the 80-90s systolic. This AM on routine vital signs check, she was found to have a BP of 82/49. RN rechecked BP manually and confirmed that the BP was accurate. Patient was placed in trendelenburg position and BP was rechecked and actually lower at 74/49. RN contacted attending physician and pt was ordered a 500 cc bolus of NSS. Recheck of BP was 92/47 and only symptom is dizziness. She otherwise has no complaints. Back pain is controlled. Denies chest pain or dyspnea. Hospitalists have been asked to see in consult due to hypotension. Allergies Allergy/AdvReac Type Severity Reaction Status Date / Time codeine Allergy Mild HIVES Verified 10/28/22 06:32 Home Medications Medication Instructions Recorded Confirmed Type B-complex with vitamin C 1 tab PO 1400 04/07/21 10/28/22 History calcium carbonate 300 mg (750 mg) 300 mg PO BID PRN (Drug) Ingestion 04/07/21 10/28/22 History chewable tablet (Tums) cholecalciferol (vitamin D3) 125 125 mcg PO 1400 04/07/21 10/28/22 History mcg (5,000 unit) capsule magnesium 250 mg tablet 250 mg PO 1400 04/07/21 10/28/22 History docusate sodium 250 mg capsule 250 mg PO BID 06/30/22 10/28/22 History (Stool Softener) fluticasone propionate 50 1 spray intranasal HS 06/30/22 10/28/22 History mcg/actuation nasal spray,suspension (Flonase Allergy Relief) latanoprost (PF) 0.005 % eye drops 1 drp ophthalmic (eye) DAILY 06/30/22 10/28/22 History atorvastatin 20 mg tablet 20 mg PO 1400 #90 tabs 08/17/22 10/28/22 Rx oxybutynin chloride 15 mg 15 mg PO 1400 #90 tabs 08/17/22 10/28/22 Rx tablet,extended release 24 hr gabapentin 300 mg capsule 300 mg PO TID #90 caps 09/01/22 10/28/22 Rx diclofenac sodium 75 mg 75 mg PO BID PRN pain #30 tabs 09/11/22 10/28/22 Rx tablet,delayed release metformin 500 mg tablet,extended 1,000 mg PO 1400 #180 tabs 09/17/22 10/28/22 Rx release 24 hr lisinopril 20 mg tablet 20 mg PO 1400 #90 tabs 10/02/22 10/28/22 Rx Auto Titrating CPAP #1 ea 10/09/22 Rx tramadol 50 mg tablet 50 mg PO BID PRN severe pain 10/20/22 10/28/22 Rx (scale score 7-10) #30 tabs pantoprazole 40 mg tablet,delayed 40 mg PO BID 10/28/22 10/28/22 History release (Protonix) tizanidine 4 mg capsule (Zanaflex) 4 mg PO BID PRN muscle spasticity 10/28/22 10/28/22 History Wheeled Walker #1 ea 10/29/22 Rx oxycodone 5 mg capsule 5 mg PO Q6H PRN pain #30 caps 10/29/22 Rx Patient History Medical History Arthritis Chronic back pain Chronic neck pain Diabetes type 2, controlled NIDDM GERD (gastroesophageal reflux disease) History of COVID-19 06/2022 (home test)- weakness, fatigue, given Paxlovid Hx of endometriosis Hyperlipidemia Hypertension Lumbar radiculopathy, right Lumbar spinal stenosis Macular degeneration Mixed stress and urge urinary incontinence Peripheral neuropathy Sacroiliitis Severe obstructive sleep apnea CPAP (device taken back, needs to be retested) Surgical History H/O knee surgery partial Right knee replacement H/O neck surgery C4-[address] Aguilar - Full ROM per patient History of bilateral tubal ligation History of carpal tunnel release bilateral History of section x2 History of colonoscopy History of detached retina repair right History of esophagogastroduodenoscopy (EGD) Colonoscopy/EGD (07/07/22): MAC at [facility] History of tonsillectomy S/P debridement () stomach area S/P epidural steroid injection cervical S/P gastroplasty Vertical Banded Gastroplasty S/P laparotomy () multiple for endometriosis + mesh placement + surgical site infection s/p mesh placement Family History Father Prostate cancer Myocardial infarction Lung cancer Mother Congestive heart failure Hypertension Other No family history of adverse response to anesthesia Denies family history of Ovarian cancer Breast cancer Colorectal cancer Social History Smoking Status: Former smoker Tobacco Type: Cigarettes Age Started Using Tobacco: 18; Age Quit Using Tobacco: 36; packs per day: 0.25; Second Hand Exposure: No; Do You Dip or Chew Tobacco: No; Hx Alcohol Use: No Hx Substance Use: No Preferred Language: Japanese Communication Ability: Effective Visual Impairment: Limited Hearing Ability: Normal Greaser Operator Required: No Beliefs That Will Affect Care: None marital status: Current Living Situation: Alone current occupational status: employed 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 NAD. LUNGS: Clear to auscultation bilaterally w/o w/r/r. CARDIOVASCULAR: Regular rate and rhythm. ABDOMEN: Soft, non-tender and non-distended. BS normoactive x 4 quad. EXTREMITIES: No edema. Non-tender. Peripheral pulses +2/4. NEUROLOGIC: A&O x3. No focal neurological deficits. CN II-XII grossly intact. PSYCHIATRIC: Cooperative. Appropriate mood and affect. SKIN: Warm, dry, intact. No rashes or lesions. Back incision is dressed, some bleeding on dressing is noted and marked. No drains present. Results & Data Results & Data Vital Signs (Past 12 Hours) Vital Signs Temp Pulse Pulse Resp BP Pulse Ox O2 Del Method 10/29/22 08:16 92/47 L 10/29/22 08:04 74/49 L 10/29/22 07:56 82/49 L 10/29/22 07:46 71 92/58 L 10/29/22 07:42 90/58 L 10/29/22 07:36 82/56 L 10/29/22 07:25 36.7 C 73 18 88/58 L 93 Room Air 10/29/22 02:37 36.4 C L 81 20 143/76 H 94 Room Air 10/28/22 23:15 80 92 Room Air 10/28/22 23:00 37.1 C 81 18 96/61 L 91 Room Air PG Care Time/CCT Total # of Minutes Spent Total Time Spent with Patient: Total time spent is greater than 50% in coordination of care (as documented) at patient's floor/unit and/or counseling patient: Coding Level of Care Code 56360 IN/OBS CONSULT LVL 3,45M Diagnoses Hypotension I95.9 Status post laminectomy Z98.890 Diabetes type 2, controlled E11.9 GERD (gastroesophageal reflux disease) K21.9
[2022-10-29 08:57] LABS: Hematocrit (blood only) 33.3 % (37.0-47.0); Hemoglobin 11.1 g/dl (12.0-16.0); Mean Corpuscular Hemoglobin 30.1 pg (25.0-34.0); Mean Corpuscular Hgb Conc 33.3 g/dL (32.0-36.0); Mean Corpuscular Volume 90.2 fL (80.0-100.0); Platelet Count 149 K/uL (130-400); RDW Coefficient of Variation 13.6 % (11.5-14.5); RDW Standard Deviation 44.9 fL (36.4-46.3); Red Blood Count 3.69 M/uL (4.20-5.40); White Blood Count 9.86 K/ul (4.8-10.8)
[2022-10-29] MEDS ORDERED: LATANOPROST 0.005% OP SOLN 2.5 ML BTL OP SCH (09:00)
[2022-10-29] MEDS: PANTOprazole 40 MG TAB PO SCH (09:13)
[2022-10-29] MEDS: GABAPENTIN 300 MG CAP PO SCH ×2 (09:13→13:26)
[2022-10-29 09:17] LABS: BUN Creatinine Ratio 28.9 (10-20); Calcium 8.2 mg/dl (8.6-10.3); Creatinine Clr Calc Pharmacy 80.1 ml/min; Est GFR (African American) 85.8 ml/min; Potassium 4.2 mmol/L (3.5-5.1)
--- NOTE | 2022-10-29 09:19 | Pharmacy Report ---
Glycemic Ortho Sign Off Note - Date of Service October 29, 2022 - Scope Glycemic Pharmacist consulted for glycemic control and to write orders per [facility] inpatient glycemic control protocol. - Objective Accuchecks BSG (last 24hrs):: 10/28/22 10/28/22 10/29/22 12:35 14:53 08:05 Glucose POC Glucose 230 H 146 H 101 H 10/29/22 08:36 Glucose 94 POC Glucose - Assessment * Pt is maintained on an oral antidiabeticagentas anoutpatient with excellent control per recent A1c * Will resume today * Low stress weight based insulin dosing appropriate since patient has minimal risk factors for insulin resistance. * Appropriate to DC insulin and resume outpatient antidiabetic regimen at discharge * Goal is to maintain BSGs <200 mg/dl (ideally <150 mg/dl) to prevent post op complications - Plan For Inpatient Glycemic Control * Resume Metformin 1000 mg PO BIDM this morning * No basal insulin * Bolus insulin * Utilize low stress weight based NovoLog parameters per scale ACHS * Correction factor only. No carb ratio. * Pharmacy has entered glycemic orders and is signing off of the glycemic consult. We will no longer be making adjustments to inpatient regimen. Please feel free to re-consult if needed. Thank you.
[2022-10-29] MEDS ORDERED: metFORMIN HCL ER 500 MG TABCR PO SCH (09:30)
[2022-10-29] MEDS ORDERED: SODIUM CHLORIDE 0.9% 1000ML 500 ML IV SCH (10:00)
--- NOTE | 2022-10-29 10:01 | Orthopedic Progress Note ---
Date of Service October 29, 2022 Subjective Patient notes distinct improvement of her lower extremity numbness and tingling and leg symptoms, she has some slight residual numbness in her right foot but overall notably improved. She has some symptoms corresponding to incisional pain otherwise no other issues. Dressing with some minimal amount of drainage present otherwise unremarkable Impression/plan: Patient was a stable while alert and awake when I discussed her situation with her this morning, we are planning on discharge later today after undergoing physical therapy and Occupational Therapy. Since that time she developed some blood pressure issues, she is being evaluated by medicine for this. Depending on how she does we still might allow for discharge later today. Review of Systems All systems reviewed & are unremarkable except as noted in HPI & below. Physical Exam . Results & Data Results & Data Laboratory Results . Diagnostic Findings . PG Care Time/CCT Total # of Minutes Spent Total Time Spent with Patient: Total time spent is greater than 50% in coordination of care (as documented) at patient's floor/unit and/or counseling patient: Coding Level of Care Code 26873 Post Operative Follow-Up Diagnoses
--- NOTE | 2022-10-29 13:00 | Operative Report ---
PG Post Operative Report Pre & Post Diagnosis Operation Date: 10/28/22 07:30 Pre-Op Diagnosis: Spinal Stenosis, Lumbar Region with Neurogenic Claudication Post-Op Diagnosis: Spinal Stenosis, Lumbar Region with Neurogenic Claudication I identified the patient and participated in the time-out.: Yes Procedure Operation Date: 10/28/22 07:30 Actual Procedures p L2-L3 Laminectomy, L4-L5 Laminectomy(Not Applicable) - Romaine Herbert MD Patient was taken the operating room and after adequate anesthesia she was carefully positioned on the Chan frame and checked for positioning. After doing so, a preprep was performed the lumbar region, I brought in fluoroscopy and marked for the area of the location for the surgery followed by prepping and draping. Surgery started with a midline incision taken through the subcutaneous tissues down to the spinous processes were then elevated mobilized the tissues away from the interlaminar regions at L2-3 and L4-5. These locations were confirmed fluoroscopically, and then starting at the L4-5 level began the procedure. Used a rongeur to remove the inferior half of the spinous process of L4 advanced this down to the interlaminar region where I then mobilized the tissues of the interlaminar area. After this was thinned I used a high-speed bur to expand the decompression with bilateral hemilaminotomies across the inferior laminar edge of L4 across the superior laminar edge of L5 along the medial facets on both sides. With this completed I then used combination of curettes and Kerrison punches and pituitaries to thin the ligamentum flavum once reaching the midline and then I moved out to both sides decompressing the canal. The ligamentum flavum was removed heading in both directions and also underc utting the facets, continue this process of the area as well decompressed. After doing so I then moved to have placing thrombin-soaked Gelfoam, followed by then moving to the L2-3 segment. At this level 1 setting retractors, I then performed essentially the same procedure with removal of the inferior laminar edge of L2 cross the superior lamina edge of L3 after removing the inferior aspect of the spinous process. Bilaterally I then used a high-speed bur to move down the lower medial aspect of the facets and then began thinning the ligamentum flavum. This decompression was then completed with removal of the significant facet arthrosis causing the stenosis decompressing the canal in this region. With this now completed, inspection of both areas revealed no evidence of any CSF leakage, both areas were irrigated with normal saline solution, some thrombin-soaked Gelfoam was placed. I then injected local in the operative area followed by then vancomycin powder and closed this in layers using 0 Vicryl sutures with additional vancomycin powder and then 2-0 Vicryl sutures and angelica for the skin. Sterile dressing was applied, the patient was taken recovery room satisfactory condition. Surgeon Romaine Herbert MD Tester Vibrator Equipment none Estimated Blood Loss 150 Findings Consistent with Post-Op Diagnosis Specimens none Description of Procedure L2-3 and L4-5 posterior lumbar decompression I attest to the content of the Intraoperative Record and any orders documented therein. Any exceptions are noted below.
[2022-10-29] MEDS: OXYBUTYNIN CHLORIDE XL 5 MG TABCR PO SCH (13:26)
--- NOTE | 2022-11-05 11:57 | Discharge Summary ---
Date of Service November 05, 2022 Admission HPI (Per Admitting) Patient was admitted for lumbar decompression surgery, this was completed on October 28. Patient had improvement in lower extremity symptoms postoperatively and was discharged after some additional IV hydration on the . Principal Diagnosis Same as "Discharge Diagnosis" noted below under Discharge Instructions. Discharge Exam . Discharge Data Consultations 10/29/22 08:09 Consult Hospitalist Routine Procedures Performed Operation Date: 10/28/22 07:30 Actual Procedures p L2-L3 Laminectomy, L4-L5 Laminectomy(Not Applicable) - Romaine Herbert MD Ordered Studies 10/28/22 07:30 FL spine 1V any level Routine PG Care Time/CCT Total # of Minutes Spent Total Time Spent with Patient: Total time spent is greater than 50% in coordination of care (as documented) at patient's floor/unit and/or counseling patient: Discharge Plan Discharge Items Patient Disposition: Home - Self-Care Reason For Visit: Spinal Stenosis, Lumbar Region with Neurogenic Discharge Diagnosis: lumbar stenosis Activity: Per Instructions section Lifting: No more than 10 pounds Bathing: May shower/bathe in 3 days Driving/Machine Use: Resume 3 days after discharge Weightbearing: Full weightbearing Non-emergency contact: Surgeon Call non-emergency contact if: your pain is not controlled Follow-up/Referrals: Moises Nava CRNP [Primary Care Provider] - Diet: Regular Addtl Attending Provider Instructions: follow up in 2 weeks Addtl Outsole Skiver Provider Instructions: Please do not take your lisinopril for two days resume on lorenza 14th if you feel lightheaded or dizzy on ly take 1/2 the dose moving forward and contract your family doctor for an appointment Pending Studies at Discharge: No Stand-Alone Forms: My [employer], Smoking Cessation Medications and DC Order Prescriptions: New oxycodone 5 mg capsule 5 mg PO Q6H PRN (Reason: pain) Qty: 30 0RF Continued gabapentin 300 mg capsule 300 mg PO TID Qty: 90 5RF oxybutynin chloride 15 mg tablet extended release 24hr 15 mg PO 1400 Qty: 90 1RF atorvastatin 20 mg tablet 20 mg PO 1400 Qty: 90 3RF metformin 500 mg tablet extended release 24 hr 1,000 mg PO 1400 Qty: 180 1RF (DME) Auto Titrating CPAP Misc See Rx Instructions .ROUTE .MEDSUPPLY Qty: 1 0RF Rx Instructions: As directed Nightly. tramadol 50 mg tablet 50 mg PO BID PRN (Reason: severe pain (scale score 7-10)) Qty: 30 0RF Rx Instructions: Take one tablet every 12 hours as needed for severe pain (DME) Wheeled Walker Misc See Rx Instructions .MEDSUPPLY Qty: 1 0RF Rx Instructions: As directed magnesium 250 mg tablet 250 mg PO 1400 cholecalciferol (vitamin D3) 125 mcg (5,000 unit) capsule 125 mcg PO 1400 B-complex with vitamin C Tablet 1 tab PO 1400 calcium carbonate [Tums] 300 mg (750 mg) tablet,chewable 300 mg PO BID PRN (Reason: (Drug) Ingestion) diclofenac sodium 75 mg tablet,delayed release (DR/EC) 75 mg PO BID PRN (Reason: pain) Qty: 30 1RF Rx Instructions: With meals pantoprazole [Protonix] 40 mg tablet,delayed release (DR/EC) 40 mg PO BID Rx Instructions: 40 mg orally Take Twice a day times 2 weeks then daily; tizanidine [Zanaflex] 4 mg capsule 4 mg PO BID PRN (Reason: muscle spasticity) docusate sodium [Stool Softener] 250 mg Capsule 250 mg PO BID fluticasone propionate [Flonase Allergy Relief] 50 mcg/actuation spray,suspension 1 spray intranasal HS Rx Instructions: administer into each nostril latanoprost (PF) 0.005 % Drops 1 drp OPHTHALMIC (EYE) DAILY Held lisinopril 20 mg tablet 20 mg PO 1400 Qty: 90 3RF Hold Instructions: Resume on 11/01/22. if dizzy or low blood pressures only resume the medication at half the dose Discharge Orders: Discharge Order (Routine); Ordered 10/29/22 Ordered By: Romaine Herbert Admission Data Admit Date/Time: 10/28/22 12:46 Attending Provider: Romaine Herbert Admit Provider: Romaine Herbert Primary Care Provider: Moises Nava Other Providers: Anthony Hernandez Other Interventions: Discharge Summary Assessment (RN) Last Done: 10/29/22 13:43
== END 2022-10-29 14:28 | disposition home or self-care (01) ==
LOC: ASU 05:58 → 3E 05:58